=== PATIENT | male | born 1970 | race African-American/Black ===

== ENCOUNTER 2020-11-26 18:37 | Inpatient (IN) | payer BC, OTHER ==
[2020-11-26 20:32] VITALS: BMI 25.8
[2020-11-26] MEDS ORDERED: MAG HYDROX/AL HYDROX/SIMETH 30 ML UNIT-DOSE CUP PO PRN (22:22)
[2020-11-26] MEDS ORDERED: ONDANSETRON *ODT* 4 MG TABLET SL PRN (22:22)
[2020-11-26] MEDS ORDERED: NICOTINE POLACRILEX 2 MG GUM BUC PRN (22:22)
[2020-11-26] MEDS ORDERED: IBUPROFEN 400 MG TABLET (FP) PO PRN (22:22)
[2020-11-26] MEDS ORDERED: MAGNESIUM CITRATE 300 ML BOTTLE PO PRN (22:22)
[2020-11-26] MEDS ORDERED: BISMUTH SUBSALICYLATE 524 MG/30 ML PO PRN (22:22)
[2020-11-26] MEDS ORDERED: chlordiazePOXIDE HCL 25 MG CAPSULE PO PRN (22:22)
[2020-11-26] MEDS ORDERED: ACETAMINOPHEN 325 MG TABLET (FP) PO PRN ×2 (22:22)
[2020-11-26] MEDS ORDERED: MAGNESIUM HYDROX 2400MG/30ML ORAL SUSPENSION 30 ML CUP PO PRN (22:22)
[2020-11-26] MEDS ORDERED: MENTHOL/PHENOL 1 EACH UD MM PRN (22:22)
[2020-11-27] MEDS: chlordiazePOXIDE HCL 25 MG CAPSULE PO SCH ×3 (03:58→10:43)
[2020-11-27] MEDS ORDERED: FLU VACCINE (FLULAVAL) PF 60 MCG/0.5 ML SYRINGE 2020-2021 IM ONE (10:00)
[2020-11-27] MEDS: NICOTINE 14 MG/24 HOURS TOPICAL PATCH TD SCH (10:43)
[2020-11-27] MEDS: PRENATAL VITAMINS W/ FOLIC ACID TABLET (FP) PO SCH (10:43)
[2020-11-27 11:46] LABS: HEMATOCRIT 38.4 % (35.4-49); HEMOGLOBIN 13.2 GM/dL (11.7-16.9); MCHC 34.3 g/dl (32.0-35.9); MEAN CELL VOLUME 99.1 fl (80-96); MEAN PLT VOLUME 9.1 fl (7.5-11.1); PLATELET COUNT 90 K/MM3 (134-434); RBC 3.87 M/mm3 (4.00-5.60); RDW 13.7 % (11.9-15.9); WHITE BLOOD COUNT 4.1 K/mm3 (4.0-10.0)
[2020-11-27 12:03] LABS: ALBUMIN 3.6 g/dl (3.4-5.0); BLOOD UREA NITROGEN 15.9 mg/dL (7-18); CALCIUM 8.8 mg/dL (8.5-10.1)
[2020-11-27 12:07] LABS: CREATININE 0.8 mg/dL (0.55-1.3)
[2020-11-27 12:08] LABS: TOT PROT 6.9 g/dl (6.4-8.2)
[2020-11-27] MEDS ORDERED: LORazepam 1 MG TABLET PO PRN (12:14)
[2020-11-27] MEDS: LORazepam 2 MG TABLET PO SCH ×2 (17:51→22:13)
[2020-11-27] MEDS: METHOCARBAMOL 500 MG TABLET PO PRN (17:51)
[2020-11-27] MEDS: hydrOXYzine PAMOATE 25 MG CAPSULE (FP) PO PRN ×2 (17:53→22:14)
[2020-11-27] MEDS: MELATONIN 5 MG TABLETS PO SCH (22:13)
[2020-11-27] MEDS: THIAMINE HCL 100 MG TABLET (FP) PO SCH (22:14)
[2020-11-27] MEDS: QUEtiapine FUMARATE 50 MG TABLET PO SCH (22:16)
[2020-11-28] MEDS ORDERED: chlordiazePOXIDE HCL 25 MG CAPSULE PO SCH (05:00)
[2020-11-28] MEDS: LORazepam 2 MG TABLET PO SCH ×4 (05:51→22:28)
[2020-11-28] MEDS: NICOTINE 14 MG/24 HOURS TOPICAL PATCH TD SCH (10:22)
[2020-11-28] MEDS: PRENATAL VITAMINS W/ FOLIC ACID TABLET (FP) PO SCH (10:22)
[2020-11-28 10:27] LABS: INR 0.89 (0.83-1.09); PROTHROMBIN TIME (PATIENT) 10.8 SEC (9.7-13.0)
[2020-11-28 10:37] LABS: ALBUMIN 3.3 g/dl (3.4-5.0); BLOOD UREA NITROGEN 11.2 mg/dL (7-18); CALCIUM 8.8 mg/dL (8.5-10.1)
[2020-11-28 10:41] LABS: CREATININE 0.9 mg/dL (0.55-1.3)
[2020-11-28 10:42] LABS: BILIRUBIN,TOTAL 0.5 mg/dL (0.2-1); TOT PROT 6.5 g/dl (6.4-8.2)
[2020-11-28] MEDS ORDERED: POTASSIUM CHLORIDE TABS 20 MEQ TABLET.ER (FP) PO ONE (11:45)
[2020-11-28] MEDS: QUEtiapine FUMARATE 50 MG TABLET PO SCH (22:28)
[2020-11-28] MEDS: THIAMINE HCL 100 MG TABLET (FP) PO SCH (22:28)
[2020-11-28] MEDS: MELATONIN 5 MG TABLETS PO SCH (22:28)
[2020-11-29] MEDS ORDERED: chlordiazePOXIDE HCL 10 MG CAPSULE PO PRN
[2020-11-29] MEDS ORDERED: chlordiazePOXIDE HCL 10 MG CAPSULE PO SCH (05:00)
[2020-11-29] MEDS: LORazepam 1 MG TABLET PO SCH ×4 (05:37→22:50)
[2020-11-29] MEDS: NICOTINE 14 MG/24 HOURS TOPICAL PATCH TD SCH (10:23)
[2020-11-29] MEDS: PRENATAL VITAMINS W/ FOLIC ACID TABLET (FP) PO SCH (10:23)
[2020-11-29] MEDS: THIAMINE HCL 100 MG TABLET (FP) PO SCH (22:50)
[2020-11-29] MEDS: MELATONIN 5 MG TABLETS PO SCH (22:50)
[2020-11-29] MEDS: QUEtiapine FUMARATE 50 MG TABLET PO SCH (22:50)
[2020-11-29] MEDS: hydrOXYzine PAMOATE 25 MG CAPSULE (FP) PO PRN (22:51)
[2020-11-29] MEDS: METHOCARBAMOL 500 MG TABLET PO PRN (22:51)
[2020-11-30] MEDS ORDERED: LORazepam 0.5 MG TABLET PO PRN
[2020-11-30] MEDS ORDERED: chlordiazePOXIDE HCL 10 MG CAPSULE PO SCH (05:00)
[2020-11-30] MEDS: LORazepam 0.5 MG TABLET PO SCH ×4 (06:19→22:44)
[2020-11-30] MEDS: PRENATAL VITAMINS W/ FOLIC ACID TABLET (FP) PO SCH (10:44)
[2020-11-30] MEDS: NICOTINE 14 MG/24 HOURS TOPICAL PATCH TD SCH (10:44)
[2020-11-30 14:11] LABS: SARS-CoV-2 NAA Not Detected (Not Detected)
[2020-11-30] MEDS ORDERED: cloNIDine HCL 0.1 MG TABLET PO PRN (16:31)
[2020-11-30] MEDS: MELATONIN 5 MG TABLETS PO SCH (22:45)
[2020-11-30] MEDS: hydrOXYzine PAMOATE 25 MG CAPSULE (FP) PO PRN (22:45)
[2020-11-30] MEDS: THIAMINE HCL 100 MG TABLET (FP) PO SCH (22:45)
[2020-11-30] MEDS: QUEtiapine FUMARATE 50 MG TABLET PO SCH (22:45)
[2020-12-01] MEDS ORDERED: LORazepam 0.5 MG TABLET PO ONE (05:00)
[2020-12-01] MEDS ORDERED: chlordiazePOXIDE HCL 10 MG CAPSULE PO ONE (05:00)
[2020-12-01 09:07] VITALS: BP 130/64; PULSE 68; TEMP 98.4
[2020-12-01] MEDS: PRENATAL VITAMINS W/ FOLIC ACID TABLET (FP) PO SCH (09:56)
[2020-12-01] MEDS: NICOTINE 14 MG/24 HOURS TOPICAL PATCH TD SCH (10:02)
== END 2020-12-01 10:20 | disposition home or self-care (01) | DRG 775 ==
LOC: YASAS 18:37 → Y3N 23:40
PROVIDERS: ADMIT Allergy & Immunology; ATTEND Allergy & Immunology
PROC: HZ2ZZZZ Detoxification Services for Substance Abuse Treatment (ICD-10-PCS; principal; 2020-11-26)
DX: F10.230 Alcohol dependence with withdrawal, uncomplicated (principal); F17.210 Nicotine dependence, cigarettes, uncomplicated; D69.6 Thrombocytopenia, unspecified; G47.00 Insomnia, unspecified; G40.89 Other seizures; R03.0 Elevated blood-pressure reading, without diagnosis of hypertension; R74.01 Elevation of levels of liver transaminase levels; Z63.4 Disappearance and death of family member
CPT/HCPCS: 36415; 80053; 84132; 85027; 85610; 86780; 93005; 93010; C9803; G0008; J0735; Q2036; U0003; U0005